=== PATIENT | male | born 1990 | race African-American/Black ===

== ENCOUNTER 2016-12-24 22:42 | Emergency (ER) | payer OTHER ==
[2016-12-24 22:53] VITALS: BP 122/94; PULSE 72; TEMP 98.3; BMI 22.6
--- NOTE | 2016-12-24 23:06 | PDOC ---
History of Present Illness - General History Source: Patient Exam Limitations: No Limitations - History of Present Illness Initial Comments: 12/25/16 00:04 The patient is a 26 year old male with a significant past medical history of IDDM (Diabetes 1), who presents to the ER with a headache and chills for one day. Patient states he took his daily insulin medication (30 units of lantus and 10 units humalog). Patient states he had one episode of diarrhea prior to arrival to the ER. He denies fever, nausea, vomiting, dysuria, headache, and difficulty swallowing. <Shelia Victoria - Last Filed: 12/25/16 00:16> <Emerald Keenan - Last Filed: 12/26/16 21:17> - General Chief Complaint: Blood Sugar Problem Stated Complaint: BLOOD SUGAR PROBLEM Time Seen by Provider: 12/24/16 22:48 Past History <Shelia Victoria - Last Filed: 12/25/16 00:16> - Past Medical History Diabetes: Yes - Psycho/Social/Smoking Cessation Hx Anxiety: No Suicidal Ideation: No Smoking History: Never smoked Have you smoked in the past 12 months: No Number of Cigarettes Smoked Daily: 20 Information on smoking cessation initiated: No Hx Alcohol Use: No Drug/Substance Use Hx: No Substance Use Type: Marijuana <Emerald Keenan - Last Filed: 12/26/16 21:17> - Past Medical History Allergies/Adverse Reactions: Allergies Allergy/AdvReac Type Severity Reaction Status Date / Time No Known Allergies Allergy Verified 12/24/16 22:51 Home Medications: Ambulatory Orders Insulin Glargine,Hum.rec.anlog [Lantus (10mL VIAL) -] 30 units SQ DAILY Insulin Regular [Novolin R Vial -] 7 units SQ TID 04/13/16 Insulin (Levemir) [Levemir Vial] 12 units SQ HS #1 vial 04/15/16 Insulin (Levemir) [Levemir Vial] 18 units SQ ACBK #1 vial 04/15/16 Insulin (Novolog) [Novolog -] 7 units SQ TIDAC #0 units 04/15/16 Review of Systems - Review of Systems Able to Perform ROS?: Yes Comments:: 12/25/16 00:06 CONSTITUTIONAL: Present: (+) chills Absent: fever, no fatigue EYES: Absent: visual changes ENT: Absent: ear pain, no sore throat CARDIOVASCULAR: Absent: chest pain, no palpitations RESPIRATORY: Absent: cough, no SOB GI: Present: (+) diarrhea Absent: abdominal pain, no nausea, no vomiting, no constipation GENITOURINARY: Absent: dysuria, no frequency, no hematuria MUSCULOSKELETAL: Absent: back pain, no arthralgia, no myalgia SKIN: Absent: rash NEURO: Present: (+) headache <ScShelia sandoval - Last Filed: 12/25/16 00:16> *Physical Exam - Vital Signs Last Vital Signs Temp Pulse Resp BP Pulse Ox 98.3 F 72 20 122/94 98 12/24/16 22:51 12/24/16 22:51 12/24/16 22:51 12/24/16 22:51 12/24/16 22:51 - Physical Exam Comments: 12/25/16 00:07 GENERAL: Well-appearing, well-nourished. No apparent distress. HEENT: Normocephalic, atraumatic. PERRL, EOM intact. CARDIOVASCULAR: Normal S1, S2. Regular rate and rhythm. PULMONARY: Clear to auscultation bilaterally. ABDOMEN: Soft, non-distended, non-tender. EXTREMITIES: Normal ROM in all four extremities. No gross deformities. SKIN: Warm, dry. No rash NEUROLOGICAL: No focal neurological deficits. <Shelia Victoria - Last Filed: 12/25/16 00:16> - Vital Signs Last Vital Signs Temp Pulse Resp BP Pulse Ox 98.3 F 72 20 122/94 98 12/24/16 22:51 12/24/16 22:51 12/24/16 22:51 12/24/16 22:51 12/24/16 22:51 <Emerald Keenan - Last Filed: 12/26/16 21:17> ED Treatment Course - LABORATORY CBC & Chemistry Diagram: 12/25/16 00:12 12/25/16 00:12 <Emerald Keenan - Last Filed: 12/26/16 21:17> Medical Decision Making - Medical Decision Making 12/26/16 21:16 Pt comes with poorly controlled blood sugar and feeling unwell. Labs are normal. Glc was treated with regular insulin. Pt has a viral syndrome. He was hydrated and once he felt better he was sent home. He is compliant with his insulin regimen and he will follow with his PMD as needed. <Emerald Keenan - Last Filed: 12/26/16 21:17> *DC/Admit/Observation/Transfer - Attestations Scribe Attestion: 12/25/16 00:16 Documentation prepared by Shelia Victoria, acting as medical doctor md for Emerald Keenan MD. <Shelia Victoria - Last Filed: 12/25/16 00:16> - Discharge Dispostion Admit: No <Emerald Keenan - Last Filed: 12/26/16 21:17> Diagnosis at time of Disposition: Viral illness - Discharge Dispostion Disposition: HOME Condition at time of disposition: Stable - Referrals Referrals: STAFF,NOT ON [Primary Care Provider] - - Patient Instructions Printed Discharge Instructions: DI for Hyperglycemia -- Adult, DI for Viral Syndrome - Post Discharge Activity Work/School Note: Back to Work
[2016-12-24] MEDS ORDERED: INSULIN REGULAR HUMAN 100 UNITS/ML *VIAL IVPUSH ONE (23:16)
[2016-12-24] MEDS ORDERED: SODIUM CHLORIDE 0.9% 500 ML INFUS.BAG IV ONE (23:29)
[2016-12-25] MEDS ORDERED: INSULIN REGULAR HUMAN 100 UNITS/ML *VIAL ONE (00:05)
[2016-12-25 00:51] LABS: ALBUMIN 3.4 g/dl (3.4-5.0); ALK PHOS 82 U/L (45-117); ANION GAP 12 (8-16); BILIRUBIN,TOTAL 0.6 mg/dL (0.2-1.0); CO2 25 mmol/L (21-32); COCKROFT - GAULT 118.8; SGOT/AST 12 U/L (15-37); SGPT/ALT 20 U/L (12-78)
[2016-12-25 00:54] LABS: GLUCOSE,RANDOM 333 mg/dL (74-106)
[2016-12-25 01:12] LABS: ACETONE SERUM NEGATIVE (NEGATIVE)
== END 2016-12-25 02:14 | disposition home or self-care (01) ==
LOC: JER 22:42
PROC: 3E013VG Introduction of Insulin into Subcutaneous Tissue, Percutaneous Approach (ICD-10-PCS; principal; 2016-12-24)
DX: B34.9 Viral infection, unspecified (principal); E10.65 Type 1 diabetes mellitus with hyperglycemia; Z79.4 Long term (current) use of insulin
CPT/HCPCS: 36415; 80053; 82009; 85025; 96372; 99282-25

== ENCOUNTER 2017-09-07 13:04 | Observation (INO) | payer OTHER ==
[2017-09-07 13:19] VITALS: BMI 22.9
[2017-09-07] MEDS ORDERED: ONDANSETRON 4 MG/2 ML VIAL ONE (13:21)
[2017-09-07] MEDS ORDERED: SODIUM CHLORIDE 1,000 ML IV STA (13:23)
--- NOTE | 2017-09-07 13:25 | PDOC ---
Attending Attestation - Resident Resident Name: ShantalMarianne - ED Attending Attestation I have performed the following: I have examined & evaluated the patient, The case was reviewed & discussed with the resident, I agree w/resident's findings & plan, Exceptions are as noted - HPI HPI: 09/07/17 17:19 This is a 26-year-old insulin-dependent male presenting to the emergency department with a complaint of nausea, vomiting, hyperglycemia. No fevers, chills. No body aches. No diarrhea. - Physicial Exam PE: 09/07/17 17:19 Patient is awake and alert Dry mucous membranes RRR CTA BL No abdominal tenderness, guarding, rebound Patient ambulatory from his room to the bathroom multiple times This patient is neurologically intact - Medical Decision Making 09/07/17 17:21 26-year-old male presenting to the emergency department with a complaint of hyperglycemia, nausea, vomiting 09/07/17 17:27 Laboratory Tests 09/07/17 09/07/17 09/07/17 13:15 13:50 13:50 WBC 7.4 D Hgb 15.8 D Hct 48.6 D Plt Count 166 D PT with INR 12.10 H INR 1.07 PTT (Actin FS) 26.7 L VBG pH POC VBG pCO2 POC VBG pO2 Mixed VBG HCO3 Sodium Potassium Chloride Carbon Dioxide BUN Creatinine POC Glucometer > 400 Random Glucose Creatine Kinase Creatine Kinase Index CK-MB (CK-2) Troponin I Urine Blood Urine Nitrite Ur Leukocyte Esterase Acetone, Qual 09/07/17 09/07/17 09/07/17 13:50 13:50 14:00 WBC Hgb Hct Plt Count PT with INR INR PTT (Actin FS) VBG pH 7.25 L POC VBG pCO2 51.8 POC VBG pO2 48.7 H D Mixed VBG HCO3 21.8 Sodium 133 L Potassium 5.7 H D Chloride 97 L Carbon Dioxide 24 BUN 21 H D Creatinine 1.4 H D POC Glucometer Random Glucose 429 H* D Creatine Kinase 171 Creatine Kinase Index 1.4 CK-MB (CK-2) 2.501 Troponin I < 0.02 Urine Blood Urine Nitrite Ur Leukocyte Esterase Acetone, Qual Trace 09/07/17 14:22 WBC Hgb Hct Plt Count PT with INR INR PTT (Actin FS) VBG pH POC VBG pCO2 POC VBG pO2 Mixed VBG HCO3 Sodium Potassium Chloride Carbon Dioxide BUN Creatinine POC Glucometer Random Glucose Creatine Kinase Creatine Kinase Index CK-MB (CK-2) Troponin I Urine Blood Negative Urine Nitrite Negative Ur Leukocyte Esterase Negative Acetone, Qual 09/07/17 17:28 Flu negative 09/07/17 17:28 CXR negative Pt given 3L NS Pt given Insulin 8 Units Bolus followed by a drip Insulin drip stopped once it appeared that pt did not have DKA EKG: Sinus rhythm rate of 60 bpm, axis normal, intervals are normal, no ST elevations or depressions, T waves upright
--- NOTE | 2017-09-07 13:35 | PDOC ---
History of Present Illness - General Chief Complaint: Blood Sugar Problem Stated Complaint: HIGH BLOOD SUGAR Time Seen by Provider: 09/07/17 13:17 History Source: Patient, EMS Exam Limitations: No Limitations - History of Present Illness Initial Comments: This is a 26 YOM with h/o Type I IDDM c/b recurrent DKA who is BIBA from home from where he called 911 after waking up with nausea, multiple episodes of vomiting, increased urination, and generalized weakness/fatigue since this morning. He had been feeling well per his normal baseline until this morning. He took his normal 8 units Humalog last night and he has no idea what might have triggered his CBG to increase so high. EMS notes that his CBG was >500 on their glucometer. His VS were wnl for them, they started a liter of NS and gave him 4 mg IV Zofran en route. The patient has been on antibiotics for a skin infection overlying his nasal bridge (has two pills left in the course), but he has no recent fever, cough, chest pain, SOB, abdominal pain, dysuria, additional skin changes, or other symptoms. Past History - Past Medical History Allergies/Adverse Reactions: Allergies Allergy/AdvReac Type Severity Reaction Status Date / Time No Known Allergies Allergy Verified 12/24/16 22:51 Home Medications: Ambulatory Orders Insulin Glargine,Hum.rec.anlog [Lantus (10mL VIAL) -] 30 units SQ DAILY Insulin (Novolog) [Novolog -] 10 units SQ TIDAC 09/07/17 COPD: No Diabetes: Yes - Immunization History Immunization Up to Date: No - Suicide/Smoking/Psychosocial Hx Smoking History: Current every day smoker Have you smoked in the past 12 months: Yes Number of Cigarettes Smoked Daily: 20 Information on smoking cessation initiated: No Hx Alcohol Use: No Drug/Substance Use Hx: No Substance Use Type: Marijuana Review of Systems - Review of Systems Able to Perform ROS?: Yes Constitutional: Yes: Chills, Weakness, Other (fatigue). No: Fever, Unexplained wgt Loss HEENTM: No: Nose Congestion, Throat Pain Respiratory: No: Cough, Shortness of Breath Cardiac (ROS): No: Chest Pain, Palpitations ABD/GI: Yes: Nausea, Vomiting. No: Constipated, Diarrhea : No: Burning, Dysuria Musculoskeletal: No: Back Pain, Neck Pain Integumentary: No: Bruising, Rash Neurological: No: Headache, Numbness, Tingling, Weakness, Dizziness Endocrine: No: Unexplained Weight Gain, Unexplained Weight Loss *Physical Exam - Vital Signs Last Vital Signs Temp Pulse Resp BP Pulse Ox 97.8 F 68 18 122/69 100 09/07/17 13:16 09/07/17 13:16 09/07/17 13:16 09/07/17 13:16 09/07/17 13:16 - Physical Exam General Appearance: Yes: Nourished, Appropriately Dressed, Mild Distress, Other (tired-appearing adult male who awakens easily with conversation, appears uncomfortable, no active vomiting, answering questions appropriately). No: Apparent Distress HEENT: positive: EOMI, Normal Voice, Hearing Grossly Normal, Other (dry mucous membranes). negative: Scleral Icterus (R), Scleral Icterus (L), Nasal Congestion Neck: positive: Trachea midline, Supple. negative: Tender, Rigid Respiratory/Chest: positive: Lungs Clear, Normal Breath Sounds. negative: Respiratory Distress, Crackles, Rhonchi, Stridor, Wheezing Cardiovascular: positive: Regular Rhythm, Regular Rate, S1, S2. negative: Edema , JVD, Murmur Gastrointestinal/Abdominal: positive: Normal Bowel Sounds, Flat, Soft. negative : Tender, Organomegaly, Pulsatile Mass, Guarding Musculoskeletal: positive: Normal Inspection. negative: Decreased Range of Motion, Vertebral Tenderness Extremity: positive: Normal Capillary Refill, Normal Inspection, Normal Range of Motion. negative: Tender, Cyanosis Integumentary: positive: Normal Color, Dry, Warm. negative: Erythema, Rash, Bruising Neurologic: positive: transcribing operator head II-XII NML intact (grossly), Fully Oriented, Alert, Normal Mood/Affect, Normal Response, Motor Strength 5/5. negative: Facial Droop , Confused, Disoriented ED Treatment Course - LABORATORY CBC & Chemistry Diagram: 09/07/17 13:50 09/07/17 17:30 - RADIOLOGY Radiology Studies Ordered: Category Date Time Status CHEST X-RAY PORTABLE* [RAD] Stat Radiology 09/07/17 13:28 Ordered Medical Decision Making - Medical Decision Making 26 YOM with h/o Type 1 IDDM with multiple prior DKA who p/w nausea, vomiting, generalized weakness, GRAHAM, hyperglycemia >500. States this is how his prior DKA felt. On exam he is mildly tachycardic but otherwise VS wnl, appears in mild distress , A/Ox4, nontender abdomen, appears dehydrated. Patient is given Reglan for nausea and stated headache. 09/07/17 16:21 AG is only 12 but trace acetone. The patient's VBG pH is 7.25. Flu swab sent. 09/07/17 19:20 Lactate results AT 2.2, VBG with pH improved to 7.28, still awaiting results of repeat acetone. Pt states he wants to leave, very hungry and states he will stay for eval of elevated lactate if he gets dinner bag. 09/07/17 19:54 MBMD sent to [facility] for admission to obs. 09/07/17 20:[address] Thomas who agrees with plan for obs. Admission order placed. *DC/Admit/Observation/Transfer Diagnosis at time of Disposition: Lactic acidosis, Hyperglycemia, Dehydration - Discharge Dispostion Condition at time of disposition: Guarded Admit: Yes - Referrals - Patient Instructions - Post Discharge Activity
[2017-09-07 14:04] LABS: VENOUS PC02 51.8 mmHg (38-52); VENOUS PH 7.25 (7.32-7.42); VENOUS PO2 48.7 mmHg (28-48)
[2017-09-07 14:05] LABS: BASO % 0.3 % (0-2.0); EOS % 0.3 % (0-4.5); HEMATOCRIT 48.6 % (35.4-49); HEMOGLOBIN 15.8 GM/dL (11.7-16.9); LYMPH % 12.9 % (8-40); MCH 28.1 pg (25.7-33.7); MCHC 32.5 g/dl (32.0-35.9); MEAN CELL VOLUME 86.3 fl (80-96); MEAN PLT VOLUME 9.1 fl (7.5-11.1); MONO % 3.8 % (3.8-10.2); NEUT % 82.7 % (42.8-82.8); PLATELET COUNT 166 K/MM3 (134-434); RBC 5.63 M/mm3 (4.00-5.60); RDW 12.5 % (11.9-15.9); WHITE BLOOD COUNT 7.4 K/mm3 (4.0-10.0)
[2017-09-07 14:31] LABS: ANION GAP 12 (8-16); BLOOD UREA NITROGEN 21 mg/dL (7-18); CALCIUM 9.3 mg/dL (8.5-10.1); CHLORIDE 97 mmol/L (98-107); CO2 24 mmol/L (21-32); CREATININE 1.4 mg/dL (0.7-1.3); POTASSIUM 5.7 mmol/L (3.5-5.1); SGOT/AST 29 U/L (15-37); SODIUM 133 mmol/L (136-145)
[2017-09-07 14:36] LABS: URINE APPEARANCE CLEAR; URINE BILIRUBIN NEGATIVE (NEGATIVE); URINE BLOOD NEGATIVE (NEGATIVE); URINE COLOR STRAW; URINE GLUCOSE (UA) 3+ (NEGATIVE); URINE KETONE 1+ (NEGATIVE); URINE LEUK ESTERASE NEGATIVE (NEGATIVE); URINE NITRITE NEGATIVE (NEGATIVE); URINE PROTEIN NEGATIVE (NEGATIVE); URINE UROBILINOGEN NEGATIVE mg/dL (0.2-1.0)
[2017-09-07 14:37] LABS: INR 1.07 (0.82-1.09); PROTHROMBIN TIME (PATIENT) 12.1 SEC (9.98-11.88)
[2017-09-07 14:40] LABS: ACTIVATED PTT 26.7 SECONDS (26.9-34.4)
[2017-09-07 14:48] LABS: ALK PHOS 81 U/L (45-117); BILIRUBIN,TOTAL 1.2 mg/dL (0.2-1.0); SGPT/ALT 55 U/L (12-78); TOT PROT 7.3 g/dl (6.4-8.2)
--- NOTE | 2017-09-07 14:49 | EKG ---
Test Reason : Blood Pressure : / mmHG Vent. Rate : 060 BPM Atrial Rate : 060 BPM P-R Int : 166 ms QRS Dur : 092 ms QT Int : 426 ms P-R-T Axes : 073 070 057 degrees QTc Int : 426 ms SINUS RHYTHM WITH MARKED SINUS ARRHYTHMIA OTHERWISE NORMAL ECG WHEN COMPARED WITH ECG OF 13-APR-2016 13:38, NO SIGNIFICANT CHANGE WAS FOUND Confirmed by MORA REEDER, ROSY ([id number]) on 09/07/2017 2:48:43 PM Referred By: Confirmed By:ROSY VELAZCO MD
[2017-09-07 14:56] LABS: GLUCOSE,RANDOM 429 mg/dL (74-106)
[2017-09-07 15:02] VITALS: BP 111/75; PULSE 98; TEMP 98.7
[2017-09-07] MEDS ORDERED: INSULIN REGULAR 100 UNITS in SODIUM CHLORIDE 99 ML IVPB PRN (15:11)
[2017-09-07] MEDS ORDERED: METOCLOPRAMIDE HCL INJECTION 10 MG/2 ML VIAL IVPUSH ONE (15:18)
[2017-09-07] MEDS ORDERED: INSULIN REGULAR HUMAN 100 UNITS/ML *VIAL IVPUSH ONE (15:18)
[2017-09-07] MEDS ORDERED: SODIUM CHLORIDE 2,000 ML IV STA (15:19)
[2017-09-07] MEDS ORDERED: METOCLOPRAMIDE HCL INJECTION 10 MG/2 ML VIAL ONE (15:39)
[2017-09-07] MEDS ORDERED: INSULIN (NOVOLOG) ASPART 100 UNITS/ML 10ML VIAL ONE (15:40)
[2017-09-07 17:56] LABS: VENOUS PC02 43.6 mmHg (38-52); VENOUS PH 7.28 (7.32-7.42); VENOUS PO2 42.6 mmHg (28-48)
[2017-09-07 18:38] LABS: ANION GAP 11 (8-16); BLOOD UREA NITROGEN 22 mg/dL (7-18); CALCIUM 8.1 mg/dL (8.5-10.1); CHLORIDE 103 mmol/L (98-107); CO2 22 mmol/L (21-32); CREATININE 1.2 mg/dL (0.7-1.3); GLUCOSE,RANDOM 240 mg/dL (74-106); POTASSIUM 4.3 mmol/L (3.5-5.1); SODIUM 136 mmol/L (136-145)
[2017-09-07] MEDS ORDERED: SODIUM CHLORIDE 0.9% 1000 ML INFUS.BAG IV ONE (19:55)
--- NOTE | 2017-09-07 20:45 | PN ---
Teaching Attending Note Name of Resident: Cong Adam ATTENDING PHYSICIAN STATEMENT I saw and evaluated the patient. I reviewed the resident's note and discussed the case with the resident. I agree with the resident's findings and plan as documented. SUBJECTIVE: 26 yo M with hx. of Type I DM and recurrent DKA who presents with nausea and emesis. Also notes increased urination. States he took his Humalog last night, but his BG was >500 this am. States he has been on Abx. for a skin infection, which is on top of his nasal bridge. Pt. signed out against Medical Advice. He was told risks of leaving including . He was told to come back to ED if chest pain, pressure, shortness of breath, continued elevated BGMs, Fevers, inability to tolerate PO. Pt. stated he understood risks of leaving. OBJECTIVE: Physical: VS: Vital Signs Period Temp Pulse Resp BP Sys/Cannon Pulse Ox Last 24 Hr 97.8 F-98.7 F 68-98 16-18 111-122/69-75 100-100 Refused Exam CBCD WBC 7.4 K/mm3 (4.0-10.0) D 09/07/17 13:50 RBC 5.63 M/mm3 (4.00-5.60) H 09/07/17 13:50 Hgb 15.8 GM/dL (11.7-16.9) D 09/07/17 13:50 Hct 48.6 % (35.4-49) D 09/07/17 13:50 MCV 86.3 fl (80-96) 09/07/17 13:50 MCHC 32.5 g/dl (32.0-35.9) 09/07/17 13:50 RDW 12.5 % (11.9-15.9) 09/07/17 13:50 Plt Count 166 K/MM3 (134-434) D 09/07/17 13:50 MPV 9.1 fl (7.5-11.1) 09/07/17 13:50 CMP Sodium 136 mmol/L (136-145) 09/07/17 17:30 Potassium 4.3 mmol/L (3.5-5.1) D 09/07/17 17:30 Chloride 103 mmol/L (98-107) 09/07/17 17:30 Carbon Dioxide 22 mmol/L (21-32) 09/07/17 17:30 Anion Gap 11 (8-16) 09/07/17 17:30 BUN 22 mg/dL (7-18) H 09/07/17 17:30 Creatinine 1.2 mg/dL (0.7-1.3) 09/07/17 17:30 Creat Clearance w eGFR > 60 (>60) 09/07/17 13:50 Random Glucose 240 mg/dL (74-106) H D 09/07/17 17:30 Calcium 8.1 mg/dL (8.5-10.1) L 09/07/17 17:30 Total Bilirubin 1.2 mg/dL (0.2-1.0) H D 09/07/17 13:50 AST 29 U/L (15-37) D 09/07/17 13:50 ALT 55 U/L (12-78) D 09/07/17 13:50 Alkaline Phosphatase 81 U/L (45-117) 09/07/17 13:50 Total Protein 7.3 g/dl (6.4-8.2) D 09/07/17 13:50 Albumin 4.0 g/dl (3.4-5.0) 09/07/17 13:50 CARDIAC ENZYMES Creatine Kinase 171 IU/L (39-308) 09/07/17 13:50 Troponin I < 0.02 ng/ml (0.00-0.05) 09/07/17 13:50 CXR-No acute Process UA- PENDING EKG:
--- NOTE | 2017-09-07 21:10 | HP ---
CHIEF COMPLAINT: high blood sugar PCP: Dr. Garcia HISTORY OF PRESENT ILLNESS: Pt is a 26 y/o M w/ PMH IDDM who presented to ED with n/v, increased urination, and weakness since this morning. Pt has been in his usual state of health, eating, drinking, and taking his Insulin normally until this morning. He took 8u Humalog last night. This morning, he measured his glucose at >500. Pt denies recent fever, chills, nausea, vomiting, diarrhea, cough, sore throat, rash. ER course was notable for: (1) initial VBG showed acidosis. repeat VBG pH 7.28, pCO2 43, pO2 42, AG 12->11 (2) (3) Recent Travel: PAST MEDICAL HISTORY: PAST SURGICAL HISTORY: Social History: Smoking: Alcohol: Drugs: Family History: Allergies No Known Allergies Allergy (Verified 12/24/16 22:51) HOME MEDICATIONS: Home Medications Medication Instructions Recorded Insulin Glargine,Hum.rec.anlog 30 units SQ DAILY 04/13/16 [Lantus (10mL VIAL) -] Insulin (Novolog) [Novolog -] 10 units SQ TIDAC 09/07/17 REVIEW OF SYSTEMS CONSTITUTIONAL: Absent: fever, chills, diaphoresis, generalized weakness, malaise, loss of appetite, weight change HEENT: Absent: rhinorrhea, nasal congestion, throat pain, throat swelling, difficulty swallowing, mouth swelling, ear pain, eye pain, visual changes CARDIOVASCULAR: Absent: chest pain, syncope, palpitations, irregular heart rate, lightheadedness , peripheral edema RESPIRATORY: Absent: cough, shortness of breath, dyspnea with exertion, orthopnea, wheezing, stridor, hemoptysis GASTROINTESTINAL: Absent: abdominal pain, abdominal distension, nausea, vomiting, diarrhea, constipation, melena, hematochezia GENITOURINARY: Absent: dysuria, frequency, urgency, hesitancy, hematuria, flank pain, genital pain MUSCULOSKELETAL: Absent: myalgia, arthralgia, joint swelling, back pain, neck pain SKIN: Absent: rash, itching, pallor HEMATOLOGIC/IMMUNOLOGIC: Absent: easy bleeding, easy bruising, lymphadenopathy, frequent infections ENDOCRINE: Absent: unexplained weight gain, unexplained weight loss, heat intolerance, cold intolerance NEUROLOGIC: Absent: headache, focal weakness or paresthesias, dizziness, unsteady gait, seizure, mental status changes, bladder or bowel incontinence PSYCHIATRIC: Absent: anxiety, depression, suicidal or homicidal ideation, hallucinations. PHYSICAL EXAMINATION Vital Signs - 24 hr 09/07/17 09/07/17 09/07/17 13:16 14:22 15:00 Temperature 97.8 F 98.7 F Pulse Rate 68 Pulse Rate [ 84 98 H Apical] Respiratory 18 16 17 Rate Blood Pressure 122/69 Blood Pressure 116/72 111/75 [Right Arm] O2 Sat by Pulse 100 100 Oximetry (%) GENERAL: Awake, alert, and fully oriented, in no acute distress. HEAD: Normal with no signs of trauma. EYES: Pupils equal, round and reactive to light, extraocular movements intact, sclera anicteric, conjunctiva clear. No lid lag. EARS, NOSE, THROAT: Ears normal, nares patent, oropharynx clear without exudates. Moist mucous membranes. NECK: Normal range of motion, supple without lymphadenopathy, JVD, or masses. LUNGS: Breath sounds equal, clear to auscultation bilaterally. No wheezes, and no crackles. No accessory muscle use. HEART: Regular rate and rhythm, normal S1 and S2 without murmur, rub or gallop. ABDOMEN: Soft, nontender, not distended, normoactive bowel sounds, no guarding, no rebound, no masses. No hepatomegaly or splenomegaly. MUSCULOSKELETAL: Normal range of motion at all joints. No bony deformities or tenderness. No CVA tenderness. UPPER EXTREMITIES: 2+ pulses, warm, well-perfused. No cyanosis. No clubbing. No peripheral edema. LOWER EXTREMITIES: 2+ pulses, warm, well-perfused. No calf tenderness. No peripheral edema. NEUROLOGICAL: Cranial nerves II-XII intact. Normal speech. Normal gait. PSYCHIATRIC: Cooperative. Good eye contact. Appropriate mood and affect. SKIN: Warm, dry, normal turgor, no rashes or lesions noted, normal capillary refill. Laboratory Results - last 24 hr 09/07/17 09/07/17 09/07/17 13:15 13:50 13:50 WBC 7.4 D RBC 5.63 H Hgb 15.8 D Hct 48.6 D MCV 86.3 MCH 28.1 MCHC 32.5 RDW 12.5 Plt Count 166 D MPV 9.1 Neutrophils % 82.7 D Lymphocytes % 12.9 D Monocytes % 3.8 Eosinophils % 0.3 D Basophils % 0.3 PT with INR 12.10 H INR 1.07 PTT (Actin FS) 26.7 L VBG pH POC VBG pCO2 POC VBG pO2 Mixed VBG HCO3 Sodium Potassium Chloride Carbon Dioxide Anion Gap BUN Creatinine Creat Clearance w eGFR POC Glucometer > 400 Random Glucose Lactic Acid Calcium Total Bilirubin AST ALT Alkaline Phosphatase Creatine Kinase Creatine Kinase Index CK-MB (CK-2) Troponin I Total Protein Albumin Urine Color Urine Appearance Urine pH Ur Specific [place] Urine Protein Urine Glucose (UA) Urine Ketones Urine Blood Urine Nitrite Urine Bilirubin Urine Urobilinogen Ur Leukocyte Esterase Acetone, Qual 09/07/17 09/07/17 09/07/17 13:50 13:50 14:00 WBC RBC Hgb Hct MCV MCH MCHC RDW Plt Count MPV Neutrophils % Lymphocytes % Monocytes % Eosinophils % Basophils % PT with INR INR PTT (Actin FS) VBG pH 7.25 L POC VBG pCO2 51.8 POC VBG pO2 48.7 H D Mixed VBG HCO3 21.8 Sodium 133 L Potassium 5.7 H D Chloride 97 L Carbon Dioxide 24 Anion Gap 12 BUN 21 H D Creatinine 1.4 H D Creat Clearance w eGFR > 60 POC Glucometer Random Glucose 429 H* D Lactic Acid Calcium 9.3 Total Bilirubin 1.2 H D AST 29 D ALT 55 D Alkaline Phosphatase 81 Creatine Kinase 171 Creatine Kinase Index 1.4 CK-MB (CK-2) 2.501 Troponin I < 0.02 Total Protein 7.3 D Albumin 4.0 Urine Color Urine Appearance Urine pH Ur Specific [place] Urine Protein Urine Glucose (UA) Urine Ketones Urine Blood Urine Nitrite Urine Bilirubin Urine Urobilinogen Ur Leukocyte Esterase Acetone, Qual Trace 09/07/17 09/07/17 09/07/17 14:22 16:54 17:30 WBC RBC Hgb Hct MCV MCH MCHC RDW Plt Count MPV Neutrophils % Lymphocytes % Monocytes % Eosinophils % Basophils % PT with INR INR PTT (Actin FS) VBG pH POC VBG pCO2 POC VBG pO2 Mixed VBG HCO3 Sodium 136 Potassium 4.3 D Chloride 103 Carbon Dioxide 22 Anion Gap 11 BUN 22 H Creatinine 1.2 Creat Clearance w eGFR POC Glucometer [phone] Random Glucose 240 H D Lactic Acid Calcium 8.1 L Total Bilirubin AST ALT Alkaline Phosphatase Creatine Kinase Creatine Kinase Index CK-MB (CK-2) Troponin I Total Protein Albumin Urine Color Straw Urine Appearance Clear Urine pH 5.0 Ur Specific [place] 1.020 Urine Protein Negative Urine Glucose (UA) 3+ H Urine Ketones 1+ H Urine Blood Negative Urine Nitrite Negative Urine Bilirubin Negative Urine Urobilinogen Negative Ur Leukocyte Esterase Negative Acetone, Qual 09/07/17 09/07/17 09/07/17 17:30 17:30 17:44 WBC RBC Hgb Hct MCV MCH MCHC RDW Plt Count MPV Neutrophils % Lymphocytes % Monocytes % Eosinophils % Basophils % PT with INR INR PTT (Actin FS) VBG pH 7.28 L POC VBG pCO2 43.6 POC VBG pO2 42.6 Mixed VBG HCO3 20.2 Sodium Potassium Chloride Carbon Dioxide Anion Gap BUN Creatinine Creat Clearance w eGFR POC Glucometer Random Glucose Lactic Acid 2.2 H* Calcium Total Bilirubin AST ALT Alkaline Phosphatase Creatine Kinase Creatine Kinase Index CK-MB (CK-2) Troponin I Total Protein Albumin Urine Color Urine Appearance Urine pH Ur Specific [place] Urine Protein Urine Glucose (UA) Urine Ketones Urine Blood Urine Nitrite Urine Bilirubin Urine Urobilinogen Ur Leukocyte Esterase Acetone, Qual Positive moderate 2+ 09/07/17 18:27 WBC RBC Hgb Hct MCV MCH MCHC RDW Plt Count MPV Neutrophils % Lymphocytes % Monocytes % Eosinophils % Basophils % PT with INR INR PTT (Actin FS) VBG pH POC VBG pCO2 POC VBG pO2 Mixed VBG HCO3 Sodium Potassium Chloride Carbon Dioxide Anion Gap BUN Creatinine Creat Clearance w eGFR POC Glucometer [phone] Random Glucose Lactic Acid Calcium Total Bilirubin AST ALT Alkaline Phosphatase Creatine Kinase Creatine Kinase Index CK-MB (CK-2) Troponin I Total Protein Albumin Urine Color Urine Appearance Urine pH Ur Specific [place] Urine Protein Urine Glucose (UA) Urine Ketones Urine Blood Urine Nitrite Urine Bilirubin Urine Urobilinogen Ur Leukocyte Esterase Acetone, Qual ASSESSMENT/PLAN: Pt is a 26 y/o M w/ PMH IDDM who presented to ED with acute onset nausea, vomiting, malaise, polyuria, and high BGM at home beginning this morning. Pt was being placed on Obs status when he decided to leave the hospital AMA. Risks of leaving AMA especially in his condition were explained at length ( including hypo/hyperglycemia, seizures, coma, ) and the patient stated he understood. Pt signed AMA form. Visit type - Emergency Visit Emergency Visit: Yes ED Registration Date: 09/07/17 Care time: The patient presented to the Emergency Department on the above date and was hospitalized for further evaluation of their emergent condition. - New Patient This patient is new to me today: Yes Date on this admission: 09/09/17 - Critical Care Critical Care patient: No
== END 2017-09-07 21:37 | disposition left against medical advice (07) ==
LOC: JER 13:04 → JERBED 20:14
PROVIDERS: ADMIT Internal Medicine; ATTEND Internal Medicine
PROC: 3E033VG Introduction of Insulin into Peripheral Vein, Percutaneous Approach (ICD-10-PCS; principal; 2017-09-07)
PROC: 3E033GC Introduction of Other Therapeutic Substance into Peripheral Vein, Percutaneous Approach (ICD-10-PCS; 2017-09-07)
PROC: 3E0337Z Introduction of Electrolytic and Water Balance Substance into Peripheral Vein, Percutaneous Approach (ICD-10-PCS; 2017-09-07)
DX: E87.2 Acidosis (principal); E86.0 Dehydration; E10.65 Type 1 diabetes mellitus with hyperglycemia; Z79.4 Long term (current) use of insulin
CPT/HCPCS: 36415; 71045-TC; 80048; 80053; 81003; 82009; 82550; 82553; 82803; 82962; 83605; 84484; 85025; 85610; 85730; 87086; 87804; 93005; 93010; 96361; 96374; 96375; 99284-25; G0378